=== PATIENT | female | born 1960 | race Caucasian/White ===

== ENCOUNTER 2017-06-18 21:06 | Emergency (ER) | payer MEDICARE, MEDICAID ==
[~2017-06-18] VITALS: Ht 162.6 cm; Wt 81.6 kg
[~2017-06-18 21:06] MED LIST: CLARITIN10 MG PO; CRANBERRY200 MG PO; EDLUAR10 MG PO; GINGER500 MG PO; HYOSCYAMINE0.125 M2 PO; IRON TABLETS325 MG PO; LIPITOR40 MG PO; LYRICA 100 MG100 MG PO; MACROBID 100MG100 MG PO; MELATONIN10 M2 PO; MEN'S ROGAINE5% TP; METFORMIN500 MG PO; METOCLOPRAMIDE10 M2 PO; NAPROXEN PO; NEXIUM20 MG PO; NEXIUM40 MG PO; NORCO 325 MG-51 TAB PO; NORCO1 TAB PO; PREDNISONE 20MG20 MG PO; PROBIOTIC1 EAC5 PO; PYRIDIUM 200MG200 MG PO; REGLAN 5MG TABLE5 MG PO; SAVELLA100 MG PO; SINGULAIR10 MG PO; TESSALON PERLE100 MG PO; VALTREX1 GM PO; WELLBUTRIN XL150 MG PO; XYZAL5 MG PO; ZITHROMAX Z-PA250 M1 PO; [UNRECOGNIZED DRUG - OTHER] PO
[2017-06-18] MEDS ORDERED: VITAMIN D31000 IU PO (21:20)
[2017-06-18] MEDS ORDERED: CALCIUM + D SO1 EACH PO (21:21)
[2017-06-18 21:39] LABS: HEMOGLOBIN 13.4 g/dL (12.2-16.2); LYMPH # 3.8 K/mm3 (0.7-4.5); LYMPH % 28.5 % (10-50.0)
--- OUTSIDE RECORDS SUMMARY | 2017-06-18 21:39 | External Medical Summary Rpt | CCD ---
Author Author , TANYA MARTÍNEZ Address Unknown Phone [email or web address] Support Name Relationship Address Phone DIYA, Next Of Kin Cristóbal CHANCE [address] [place], [place] [phone] [id number] Purpose Continuity of Care Document - 11-08-2012 through 2016 Allergies, Adverse Reactions, Alerts Type Drug Allergy Adverse Reaction to Substance Substance Reaction Severity SULFA (sulfonamide) I-RASH Unknown Vital Signs 11-08-2012 16:34 Name Value Interpretat Reference Comment ion Range Body 98.5 [degF] Temperature BP 85 mm[Hg] Diastolic BP Systolic 126 mm[Hg] Heart 96 /min Rate/Pulse O2% 98 % Respiratory 99 /min Rate 11-08-2012 15:56 Name Value Interpretat Reference Comment ion Range Body 98.5 [degF] Temperature BP 71 mm[Hg] Diastolic BP Systolic 120 mm[Hg] Heart 79 /min Rate/Pulse O2% 98 % Respiratory 20 /min Rate Results Labs Lab Lab Date Result Refere Interp Status Commen Order Detail nces retati t Range on URINALYSIS/COMPLETE (11-08-2012 15:30) URINE -17-2 YELLOW YELLOW complet COLOR 013 ed 15:30 URINE -17-2 CLOUDY CLEAR complet APPEARA 013 ed NCE 15:30 URINE -17-2 NEGATIV NEG complet GLUCOSE 013 E ed - 15:30 DIPSTIC K URINE 03-17-2 NEGATIV NEG complet BILIRUB 013 E ed IN - 15:30 DIPSTIC K URINE 03-17-2 NEGATIV NEG complet KETONE 013 E mg/dL ed 15:30 URINE 03-17-2 Less 1.005-1 complet SPECIFI 013 than or .030 ed C 15:30 equal GRAVITY to 1.005 URINE 03-17-2 3+ NEG complet BLOOD 013 ed 15:30 URINE -17-2 6.0 UNK 5.0-8.5 complet PH 013 ed 15:30 URINE 03-17-2 NEGATIV NEG complet PROTEIN 013 E mg/dL ed - 15:30 DIPSTIC K URINE 0.2 NEG complet UROBILI 013 E.U./dL ed NOGEN - 15:30 DIPSTIC K URINE NEGATIV NEG complet NITRATE 013 E ed - 15:30 DIPSTIC K URINE 3+ NEG complet LEUK 013 ed ESTERAS 15:30 E URINE 20-50 0 complet RBC 013 rbc/hpf ed 15:30 URINE TNTC O complet WBC 013 wbc/hpf ed 15:30 URINE OCC 0-5 complet SQUAMOU 013 #/hpf ed S CELLS 15:30 URINE 4+ O complet BACTERI 013 ed A 15:30 Encounters Encounter Start End Date Code Location Performer Type Date Emergency [facility] (ER) 3 15:20 3 16:35 [facility] Bill Espinoza
--- OUTSIDE RECORDS SUMMARY | 2017-06-18 21:39 | External Medical Summary Rpt | CCD ---
Author Author TANYA Address Unknown Phone [email or web address] Purpose Continuity of Care Document - through 2016
--- OUTSIDE RECORDS SUMMARY | 2017-06-18 21:39 | External Medical Summary Rpt | CCD ---
Author Author TANYA Address Unknown Phone [email or web address] Purpose Continuity of Care Document - through 2016
--- OUTSIDE RECORDS SUMMARY | 2017-06-18 21:39 | External Medical Summary Rpt | CCD ---
Author Author , TANYA MARTÍNEZ Address Unknown Phone [email or web address] Support Name Relationship Address Phone DIYA, Next Of Kin Cristóbal CHACNE [address] [place], [place] [phone] [id number] Purpose Continuity of Care Document - [...] [facility] (ER) 3 15:20 3 16:35 [facility] Bill Espinoza
--- OUTSIDE RECORDS SUMMARY | 2017-06-18 21:40 | External Medical Summary Rpt ---
Author Author TANYA Pabon, [employer] Address Unknown Phone Unavailable
--- OUTSIDE RECORDS SUMMARY | 2017-06-18 21:40 | External Medical Summary Rpt | CCD ---
Demographics Preferred Language Romansh Marital Status Unknown Rastafarian Affiliation Unknown Race Unknown Ethnic Group Unknown Author Author , TANYA Organization [employer] Address Unknown Phone Immunization Unable to retrieve immunization data due to connection failure with Immunization Registry. Please try again later.
--- OUTSIDE RECORDS SUMMARY | 2017-06-18 21:40 | External Medical Summary Rpt | CCD ---
Demographics Preferred Language Tajik Marital Status Unknown Confucianism Affiliation Unknown Race Unknown Ethnic Group Unknown Author Author , TANYA Organization [employer] Address Unknown Phone Immunization Unable to retrieve immunization data due to connection failure with Immunization Registry. Please try again later.
[2017-06-19] MEDS ORDERED: PREDNISONE50 MG PO (00:40)
--- NOTE | 2017-06-19 00:41 | Emergency Room Report ---
History of Present Illness Time Seen by [id number] Presenting Problem in Triage Pt arrived:Walked Presenting Problem:PRESSURE IN CHEST BEGINNING APPROX 1300 - WHEN TAKING DEEP BREATH PAIN RADIATES INTO THROAT - ACROSS COLAR BONE Onset of symptoms date/time:06/18/17 or onset unknown for: Treatment Prior to Arrival: PT REPORTS HAD ALLERGY SHOTS TODAY AND BEGAN FEELING BAD. 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 N Clinical Suspician of Infection? N Mental Status: 1 - Regular (Normal Baseline) Sepsis Risk:Low Sepsis Risk Have you (or family members/close friends) recently traveled outside the [place]? N If Yes, where/when: Have you had exposure to infectious disease within the past month? N TB? Other? 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 She has a history of asthma for which she is on short-acting beta agonist, as well as a Xyzal. ALLERGIES Coded Allergies: Sulfa (Sulfonamide Antibiotics) (Intermediate, I-RASH 05/30/16) ampicillin (05/30/16) levofloxacin (From LEVAQUIN) (05/30/16) Home Medications Reported Medications Metformin HCL (Metformin) 500 MG PO DAILY MILNACIPRAN HCL (Savella) 100 MG PO BID Atorvastatin Calcium (Atorvastatin) 40 MG PO DAILY Pregabalin (Lyrica 100Mg) 100 MG PO BID LEVOCETIRIZINE DIHYDROCHLORIDE (Xyzal) 5 MG PO QHS Montelukast Sodium (Singulair) 10 MG PO QHS Naproxen Sodium 440 MG PO BID Minoxidil (Rogaine) 60 ML TP BID Cranberry Extract (Cranberry) 200 MG PO BID Esomeprazole Magnesium (Nexium) 40 MG PO DAILY Melatonin 10 MG PO QHS BUPROPION HCL (Wellbutrin XL 150MG) 150 MG PO CHOLECALCIFEROL (VITAMIN D3) (Vitamin D) 800 mg PO DAILY Ca Carbonate/Vitamin D3/Vit K (Calcium + D Soft Chewable Tab) 1 EACH PO QHS History Medical History General CAD? No Angina: No NC: No Hypertension? No Hyperlipidemia? Yes CHF? No DVT? No PE? No COPD? No Asthma? Yes Anemia? Yes GERD? Yes Gastric ulcers? Yes GI Bleed? No Hernia? Yes Thyroid Problems? No Hypothyroidism? No CVA? No Seizures? No Diabetes? Yes Insulin Dependent: No Insulin Pump: No Home FSBS? No Renal Insuffiency? No End Stage Renal Disease? No UTI? Yes Stones? No GB Disease: No Nephritic Syndrome? No Asplenia? No Hepatitis? No Sickle Cell Disease? No Arthritis? Yes Migraines? No Cataracts? No Glaucoma? No MRSA? No HIV? No TB? No Anxiety? Yes Depression? Yes Cancer? No More? 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 N/A Family History Family Hx Diabetes Yes Hypertension Yes Hyperlipidemia Yes Cancer Yes Social History Smoking Hx Smoker: Never Smoker Tobacco: No Alcohol Alcohol: No Review of Systems All Other Systems Reviewed and Negative Respiratory shortness of breath Cardiovascular chest pain Physical Exam Vital Signs Vital Signs Date Time Temp Pulse Resp B/P Pulse O2 O2 Flow FiO2 Ox Delivery Rate 06/19 0101 97.9 81 20 124/89 98 06/19 0026 81 20 124/89 98 06/18 2346 78 20 112/75 97 2 06/18 2127 84 18 115/66 99 2 06/18 2107 97.9 90 18 147/118 99 General Appearance normal appearance, WD/WN, no apparent distress Respiratory Status Yes: trachea midline, chest symmetrical, non tender chest. No: respiratory distress. Lung Sounds bilateral: wheezing. Cardiovascular normal exam, regular rate/rhythm, no peripheral edema, no gallop, no JVD, no murmur, no rub, normal peripheral pulses Gastrointestinal normal bowel sounds, normal exam, non tender, soft, no organomegaly Extremities non-tender, normal range of motion, normal inspection Neurologic alert, box toe stitcher II-XII nml as tested, normal exam, oriented x 3 Mental status normal mood/affect Skin intact, normal color, warm/dry Medical Decision Making LABS/Meds/Orders Pt receiving controlled substance in ED? No Comment 00:30am-patient reexamined, appears medically stable, in no acute distress, decreased wheezing on auscultation of lung hawkins. Advised patient to follow-up with Dr. Mukherjee within the next 2-3 days for additional outpatient workup. Will discharge patient home on a course of oral steroids. Results/Orders Laboratory Tests 06/18/172343: Creatine Kinase 76, CK-MB (CK-2) Rel Index 0.7, CK and CKMB Interp < 0.5, Troponin I < 0.02 06/18/172256: Creatine Kinase Cancelled, CK-MB (CK-2) Rel Index Cancelled, CK and CKMB Interp Cancelled, Troponin I Cancelled 06/18/172109: Creatine Kinase 85, CK-MB (CK-2) Rel Index 0.6, CK and CKMB Interp < 0.5, Troponin I < 0.02, D-Dimer < 100 06/18/172109: Sodium 142, Potassium 4.0, Chloride 104, Carbon Dioxide 27, BUN 22 H, Creatinine 1.2 H, Estimated Creat Clear 67, Estimated GFR (MDRD) 46 L, Glucose 118 H, Calcium 9.6, Total Bilirubin 0.2, AST 17, ALT 29, Alkaline Phosphatase 133 H, Total Protein 8.0, Albumin 4.5, Globulin 3.5 H, Albumin/Globulin Ratio 1.3, PT 10.1, INR 0.94, APTT 26.1, WBC 13.3 H, RBC 4.71, Hgb 13.4, Hct 42.3, MCV 89.8, RDW 13.7, Plt Count 298, MPV 8.4, Gran % 64.8, Gran # 8.6 H, Lymphocytes % 28.5, Monocytes % 4.5, Eosinophils % 1.7, Basophils % 0.4, Lymphocytes # 3.8, Monocytes # 0.6, Eosinophils # 0.2, Basophils # 0.1, PUBS MCHC 31.7 L, MCH 28.4 Current Medication Orders Sig/Bruce Start time Last Medication Dose Route Stop Time Status Admin Methylprednisolone 0 .STK-MED ONE 06/18 2345 DC Sodium Succinate .ROUTE Albuterol/Ipratropium 3 ML ONCE ONE 06/18 2330 DC 06/18 INH 06/18 Albuterol/Ipratropium 0 .STK-MED ONE 06/18 2330 DC INH Methylprednisolone 125 MG ONCE ONE 06/18 2330 DC 06/18 Sodium Succinate IV 06/18 Aspirin 81 MG ONCE ONE 06/18 2130 DC 06/18 PO 06/18 Sodium Chloride 10 ML PRN PRN 06/18 2130 DCD 06/18 IV 06/19 Aspirin 0 .STK-MED ONE 06/18 2116 DC .ROUTE Orders Procedure Date/time Status [id number] FAT/LO CHO/BELEN 06/19 B Active CARDIAC ENZYMES 06/18 2334 Complete RT REQUEST DUONEB 06/18 2325 Active PARTIAL THROMBOPLASTIN TIME 06/18 2224 Complete PROTHROMBIN TIME 06/18 2224 Complete D-DIMER 06/18 2223 Complete CARDIAC ENZYMES 06/18 2223 Complete 12 LEAD EKG-SERVANDO (INITIAL) 06/18 2120 Active ELECTROCARDIOGRAM REQUEST 06/18 2120 Active IV SALINE LOCK 06/18 2120 Active CBC WITH AUTO DIFF 06/18 2120 Complete CHEM 12 PROFILE 06/18 2120 Complete CM/EKG CM/florist designer Rhythm Normal Sinus Rhythm Rate 88 Ectopy No Comments No acute ischemic changes EKG rate, NSR, rhythm, no evid. of ischemic chgs, no ectopy, normal QRS, normal [place], normal EKG, no EKG for comparison, non-spec. ST/Twave chgs, ST elevation, ST depression, LBBB, RBBB, ectopy, abnormal Q waves XRAY/CT/US XRAY/CT/US XRAY chest XR interpretation by reviewed by me Xray Results no infiltrates, normal heart size, normal lung inflation naima Departure Departure Time of Disposition 36 Disposition DC Home or Self Care(routine) Clinical Impression Primary Impression: Chest pain Qualifiers: Chest pain type: unspecified Qualified Code: R07.9 - Chest pain, unspecified Secondary Impressions: Asthma exacerbation Qualifiers: Asthma severity: mild Asthma persistence: unspecified Qualified Code: J45.901 - Unspecified asthma with (acute) exacerbation Condition STABLE Referrals Regulo Mukherjee MD: Today after leaving ER Patient Instructions DI for Asthma -- Child, DI for Chest Pain Additional Instructions Please take the medications prescribed as directed, use the inhaler/nebulizer every 4-6 hours as needed, follow-up with Dr. Mukherjee within 2 days regarding your chest pain episode today. Discharge Counseling Counseled pt/family regarding diagnosis, test results, medications/RX, home care, follow up needs Comment Please take the medications prescribed as directed, use the inhaler/nebulizer every 4-6 hours as needed, follow-up with Dr. Mukherjee within 2 days regarding your chest pain episode today. Prescriptions Current Visit Scripts Prednisone (Prednisone 50MG) 50 MG PO DAILY #5 TAB ED Critical Care Critical Care No at 0513
--- NOTE | 2017-06-19 00:41 | Emergency Room Report ---
History of Present Illness Time Seen by [id number] Presenting Problem in Triage Pt arrived:Walked Presenting Problem:PRESSURE IN CHEST BEGINNING APPROX 1300 - WHEN TAKING DEEP BREATH PAIN RADIATES INTO THROAT - ACROSS COLAR BONE Onset of symptoms date/time:06/18/17 or onset unknown for: Treatment Prior to Arrival: PT REPORTS HAD ALLERGY SHOTS TODAY AND BEGAN FEELING BAD. 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 N Clinical Suspician of Infection? N Mental Status: 1 - Regular (Normal Baseline) Sepsis Risk:Low Sepsis Risk Have you (or family members/close friends) recently traveled outside the [place]? N If Yes, where/when: Have you had exposure to infectious disease within the past month? N TB? Other? 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 She has a history of asthma for which she is on short-acting beta agonist, as well as a Xyzal. ALLERGIES Coded Allergies: Sulfa (Sulfonamide Antibiotics) (Intermediate, I-RASH 05/30/16) ampicillin (05/30/16) levofloxacin (From LEVAQUIN) (05/30/16) Home Medications Reported Medications Metformin HCL (Metformin) 500 MG PO DAILY MILNACIPRAN HCL (Savella) 100 MG PO BID Atorvastatin Calcium (Atorvastatin) 40 MG PO DAILY Pregabalin (Lyrica 100Mg) 100 MG PO BID LEVOCETIRIZINE DIHYDROCHLORIDE (Xyzal) 5 MG PO QHS Montelukast Sodium (Singulair) 10 MG PO QHS Naproxen Sodium 440 MG PO BID Minoxidil (Rogaine) 60 ML TP BID Cranberry Extract (Cranberry) 200 MG PO BID Esomeprazole Magnesium (Nexium) 40 MG PO DAILY Melatonin 10 MG PO QHS BUPROPION HCL (Wellbutrin XL 150MG) 150 MG PO CHOLECALCIFEROL (VITAMIN D3) (Vitamin D) 800 mg PO DAILY Ca Carbonate/Vitamin D3/Vit K (Calcium + D Soft Chewable Tab) 1 EACH PO QHS History Medical History General CAD? No Angina: No ME: No Hypertension? No Hyperlipidemia? Yes CHF? No DVT? No PE? No COPD? No Asthma? Yes Anemia? Yes GERD? Yes Gastric ulcers? Yes GI Bleed? No Hernia? Yes Thyroid Problems? No Hypothyroidism? No CVA? No Seizures? No Diabetes? Yes Insulin Dependent: No Insulin Pump: No Home FSBS? No Renal Insuffiency? No End Stage Renal Disease? No UTI? Yes Stones? No GB Disease: No Nephritic Syndrome? No Asplenia? No Hepatitis? No Sickle Cell Disease? No Arthritis? Yes Migraines? No Cataracts? No Glaucoma? No MRSA? No HIV? No TB? No Anxiety? Yes Depression? Yes Cancer? No More? 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 N/A Family History Family Hx Diabetes Yes Hypertension Yes Hyperlipidemia Yes Cancer Yes Social History Smoking Hx Smoker: Never Smoker Tobacco: No Alcohol Alcohol: No Review of Systems All Other Systems Reviewed and Negative Respiratory shortness of breath Cardiovascular chest pain Physical Exam Vital Signs Vital Signs Date Time Temp Pulse Resp B/P Pulse O2 O2 Flow FiO2 Ox Delivery Rate 06/19 0101 97.9 81 20 124/89 98 06/19 0026 81 20 124/89 98 06/18 2346 78 20 112/75 97 2 06/18 2127 84 18 115/66 99 2 06/18 2107 97.9 90 18 147/118 99 General Appearance normal appearance, WD/WN, no apparent distress Respiratory Status Yes: trachea midline, chest symmetrical, non tender chest. No: respiratory distress. Lung Sounds bilateral: wheezing. 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 No Comment 00:30am-patient reexamined, appears medically stable, in no acute distress, decreased wheezing on auscultation of lung hawkins. Advised patient to follow-up with Dr. Mukherjee within the next 2-3 days for additional outpatient workup. Will discharge patient home on a course of oral steroids. Results/Orders Laboratory Tests 06/18/172343: Creatine Kinase 76, CK-MB (CK-2) Rel Index 0.7, CK and CKMB Interp < 0.5, Troponin I < 0.02 06/18/172256: Creatine Kinase Cancelled, CK-MB (CK-2) Rel Index Cancelled, CK and CKMB Interp Cancelled, Troponin I Cancelled 06/18/172109: Creatine Kinase 85, CK-MB (CK-2) Rel Index 0.6, CK and CKMB Interp < 0.5, Troponin I < 0.02, D-Dimer < 100 06/18/172109: Sodium 142, Potassium 4.0, Chloride 104, Carbon Dioxide 27, BUN 22 H, Creatinine 1.2 H, Estimated Creat Clear 67, Estimated GFR (MDRD) 46 L, Glucose 118 H, Calcium 9.6, Total Bilirubin 0.2, AST 17, ALT 29, Alkaline Phosphatase 133 H, Total Protein 8.0, Albumin 4.5, Globulin 3.5 H, Albumin/Globulin Ratio 1.3, PT 10.1, INR 0.94, APTT 26.1, WBC 13.3 H, RBC 4.71, Hgb 13.4, Hct 42.3, MCV 89.8, RDW 13.7, Plt Count 298, MPV 8.4, Gran % 64.8, Gran # 8.6 H, Lymphocytes % 28.5, Monocytes % 4.5, Eosinophils % 1.7, Basophils % 0.4, Lymphocytes # 3.8, Monocytes # 0.6, Eosinophils # 0.2, Basophils # 0.1, PUBS MCHC 31.7 L, MCH 28.4 Current Medication Orders Sig/Bruce Start time Last Medication Dose Route Stop Time Status Admin Methylprednisolone 0 .STK-MED ONE 06/18 2345 DC Sodium Succinate .ROUTE Albuterol/Ipratropium 3 ML ONCE ONE 06/18 2330 DC 06/18 INH 06/18 Albuterol/Ipratropium 0 .STK-MED ONE 06/18 2330 DC INH Methylprednisolone 125 MG ONCE ONE 06/18 2330 DC 06/18 Sodium Succinate IV 06/18 Aspirin 81 MG ONCE ONE 06/18 2130 DC 06/18 PO 06/18 Sodium Chloride 10 ML PRN PRN 06/18 2130 DCD 06/18 IV 06/19 Aspirin 0 .STK-MED ONE 06/18 2116 DC .ROUTE Orders Procedure Date/time Status [id number] FAT/LO CHO/BELEN 06/19 B Active CARDIAC ENZYMES 06/18 2334 Complete RT REQUEST DUONEB 06/18 2325 Active PARTIAL THROMBOPLASTIN TIME 06/18 2224 Complete PROTHROMBIN TIME 06/18 2224 Complete D-DIMER 06/18 2223 Complete CARDIAC ENZYMES 06/18 2223 Complete 12 LEAD EKG-SERVANDO (INITIAL) 06/18 2120 Active ELECTROCARDIOGRAM REQUEST 06/18 2120 Active IV SALINE LOCK 06/18 2120 Active CBC WITH AUTO DIFF 06/18 2120 Complete CHEM 12 PROFILE 06/18 2120 Complete CM/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 of ischemic chgs, no ectopy, normal QRS, normal [place], normal EKG, no EKG for comparison, non-spec. ST/Twave chgs, ST elevation, ST depression, LBBB, RBBB, ectopy, abnormal Q waves XRAY/CT/US XRAY/CT/US XRAY chest XR interpretation by reviewed by me Xray Results no infiltrates, normal heart size, normal lung inflation naima Departure Departure Time of Disposition 36 Disposition DC Home or Self Care(routine) Clinical Impression Primary Impression: Chest pain Qualifiers: Chest pain type: unspecified Qualified Code: R07.9 - Chest pain, unspecified Secondary Impressions: Asthma exacerbation Qualifiers: Asthma severity: mild Asthma persistence: unspecified Qualified Code: J45.901 - Unspecified asthma with (acute) exacerbation Condition STABLE Referrals Regulo Mukherjee MD: Today after leaving ER Patient Instructions DI for Asthma -- Child, DI for Chest Pain Additional Instructions Please take the medications prescribed as directed, use the inhaler/nebulizer every 4-6 hours as needed, follow-up with Dr. Mukherjee within 2 days regarding your chest pain episode today. Discharge Counseling Counseled pt/family regarding diagnosis, test results, medications/RX, home care, follow up needs Comment Please take the medications prescribed as directed, use the inhaler/nebulizer every 4-6 hours as needed, follow-up with Dr. Mukherjee within 2 days regarding your chest pain episode today. Prescriptions Current Visit Scripts Prednisone (Prednisone 50MG) 50 MG PO DAILY #5 TAB ED Critical Care Critical Care No at 0515
[2017-06-19 01:01] VITALS: BP 124/89
--- NOTE | 2017-06-19 05:16 | RADIOLOGY REPORT PS360 ---
CHEST(2 VIEWS-NOT PORTABLE) HISTORY: CHEST PAIN ORDERING PHYSICIAN: Geo Griffith MD PATIENT AGE: 56 years COMPARISON: 08/18/2014 FINDINGS: The cardiomediastinal silhouette and pulmonary vascularity are within normal limits. The lungs are clear without infiltrates, suspicious nodules, or pleural effusions. No acute bony abnormalities. IMPRESSION: No acute finding
== END 2017-06-19 01:02 | disposition home or self-care (01) ==
LOC: ER 21:06
PROVIDERS: Emergency Medicine
DX: R07.9 Chest pain, unspecified (principal); J45.901 Unspecified asthma with (acute) exacerbation; K21.9 Gastro-esophageal reflux disease without esophagitis; F41.8 Other specified anxiety disorders; E11.9 Type 2 diabetes mellitus without complications; Z79.84 Long term (current) use of oral hypoglycemic drugs; Z88.1 Allergy status to other antibiotic agents; Z88.2 Allergy status to sulfonamides

== ENCOUNTER → 2017-06-25 | Outpatient (CLI) | payer MEDICARE, MEDICAID ==
[~2017-06-25] MED LIST changes: +CALCIUM + D SO1 EACH PO; +PREDNISONE50 MG PO; +VITAMIN D31000 IU PO
--- NOTE | 2017-06-25 16:56 | RADIOLOGY REPORT PS360 ---
CT CALCIUM SCORING W/3D CLINICAL INDICATION: CHEST PAIN, DYSPNEA, GERD, MVP ORDERING PHYSICIAN: Regulo Mukherjee MD PATIENT AGE: 56 years COMPARISON: None FINDINGS: Coronary artery calcium score is 0. No identifiable atherosclerotic plaque with very low cardiovascular disease risk IMPRESSION: No identifiable calcified atherosclerotic plaque
== END ==
LOC: RAD 08:00
DX: R07.9 Chest pain, unspecified (principal); R06.00 Dyspnea, unspecified; K21.9 Gastro-esophageal reflux disease without esophagitis; E78.5 Hyperlipidemia, unspecified; I34.1 Nonrheumatic mitral (valve) prolapse